=== PATIENT | female | born 1990 | race Two or more races ===

== ENCOUNTER 2018-07-02 12:45 | Inpatient (IN) | payer OTHER ==
[~2018-07-02] VITALS: Ht 162.6 cm; Wt 103.4 kg
[2018-07-08] MEDS ORDERED: PRENATAL FORMU1 EAC1 PO (06:39)
== END 2018-07-10 12:43 | disposition home or self-care (01) | DRG 807 ==
LOC: OB/GYN 07-08 05:22 → LDR 07-08 05:22 → OB/GYN 07-08 16:04
PROVIDERS: ADMIT Obstetrics & Gynecology
PROC: 10E0XZZ Delivery of Products of Conception, External Approach (ICD-10-PCS; principal; 2018-07-08)
PROC: 4A1HXCZ Monitoring of Products of Conception, Cardiac Rate, External Approach (ICD-10-PCS; 2018-07-08)
PROC: 0KQM0ZZ Repair Perineum Muscle, Open Approach (ICD-10-PCS; 2018-07-08)
DX: O70.1 Second degree perineal laceration during delivery (principal); Z37.0 Single live birth; Z3A.38 38 weeks gestation of pregnancy

== ENCOUNTER → 2019-10-25 | Day surgery (SDC) | payer OTHER ==
[~2019-10-25] MED LIST: PERCOCET 5-3251 EACH PO; PRENATAL FORMU1 EAC1 PO; RECTICARE30 GM TOP; VITAMIN C500 M6 PO
== END | disposition home or self-care (01) ==
LOC: ADM 10-24 12:45 → AMB-ENDOS 06:15
PROVIDERS: ATTEND Surgery
DX: K62.89 Other specified diseases of anus and rectum (principal); N82.3 Fistula of vagina to large intestine

== ENCOUNTER 2019-11-21 05:42 | Day surgery (SDC) | payer OTHER ==
[~2019-11-21 05:42] MED LIST changes: -PERCOCET 5-3251 EACH PO; -RECTICARE30 GM TOP
[2019-11-21] MEDS ORDERED: PERCOCET 5-3251 EACH PO (10:15)
[2019-11-21] MEDS ORDERED: RECTICARE30 GM TOP (10:16)
== END 2019-11-21 14:27 | disposition home or self-care (01) ==
LOC: CIR.AMB 05:42
PROVIDERS: ATTEND Surgery
DX: N82.3 Fistula of vagina to large intestine (principal)

== ENCOUNTER 2025-05-11 05:18 | Inpatient (IN) | payer OTHER ==
[2025-05-04 07:30] LABS: URINE APPEARANCE Cloudy; URINE BILIRRUBIN Negative (NEGATIVE); URINE BLOOD Trace; URINE COLOR Yellow; URINE GLUCOSE Negative (NEGATIVE); URINE KETONE Negative (NEGATIVE); URINE LEUKOCYTE Negative; URINE NITRATE Negative; URINE PROTEIN Negative (NEGATIVE); URINE UROBILINOGEN 0.2 E.U./dl
[2025-05-04 07:34] LABS: URINE BACTERIA 1111.8 uL (0.0-1933); URINE EPITHELIAL CELLS 32.0 uL (0.0-38.8); URINE RBC 8.6 uL (0.0-20.8); URINE WBC 3.5 uL (0.0-23.2)
[2025-05-04 07:43] LABS: URINE CAST 0.14 uL (0.0-1.40)
[2025-05-04 07:46] LABS: BASO % 0.4 % (0.1-1.2); EOS # 0.61 (0.04-0.54); EOS % 8.7 % (0.7-7.0); LYMPH # 2.20 (1.18-3.74); LYMPH % 31.3 % (19.3-53.1); MEAN PLATELET VOLUME 10.50 fl (9.4-12.4); MONO # 0.38 (0.24-0.82); MONO % 5.4 % (4.7-12.5); NEUT # 3.80 (1.56-6.13); NEUT % 53.9 % (34.0-71.1); RED CELL DISTRIBUTION WIDTH 12.6 % (11.6-14.4)
[2025-05-04 08:09] LABS: INR 0.98
[2025-05-04 08:36] LABS: ALT/SGPT 19.0 U/L (12-78); AST/SGOT 11.0 U/L (15-37); BILIRUBIN TOTAL 0.62 mg/dL (0.3-1.2); BUN CREA RATIO 21.0 (7.0-25.0); CREATININE SERUM 0.73 mg/dL (0.55-1.02); GFR 90.72; GLOBULINA 3.7 G/DL (2.4-3.5); GLUCOSE FASTING 98.0 mg/dL (65-100); OSMOLALITY SERUM 282.0 MOSM/KG (275-295); TSH 1.66 uIU/mL (0.358-3.74)
[~2025-05-11 05:18] MED LIST changes: +PERCOCET 5-3251 EACH PO; +RECTICARE30 GM TOP
[2025-05-11] MEDS ORDERED: CEFOXITIN SODIUM 2,000 MG VIAL IV ONE (06:25)
[2025-05-11] MEDS ORDERED: POVIDONE-IODINE 118 ML BOTT TOP ONE (07:00)
[2025-05-11] MEDS ORDERED: SUGAMMADEX SODIUM 200 MG/2 ML VIAL IV ONE (09:34)
[2025-05-11] MEDS ORDERED: CHLORHEXIDINE GLUCONATE 120 ML BOTTLE TOP ONE (09:38)
[2025-05-11] MEDS ORDERED: RINGERS SOLUTION,LACTATED 1,000 ML IV SCH (10:00)
[2025-05-11] MEDS ORDERED: MORPHINE SULFATE 4 MG/ML CARTRIDGE IV SCH (10:02)
[2025-05-11] MEDS ORDERED: ACETAMINOPHEN WITH CODEINE 1 UDTAB TABLET PO PRN (10:15)
[2025-05-11] MEDS ORDERED: PROMETHAZINE HCL 50 MG/ML AMPUL IM ONE (10:53)
[2025-05-11] MEDS ORDERED: PROMETHAZINE HCL 50 MG/ML AMPUL IV SCH (12:00)
[2025-05-11 12:27] LABS: BASO % 0.3 % (0.1-1.2); EOS # 0.01 (0.04-0.54); EOS % 0.1 % (0.7-7.0); LYMPH # 1.03 (1.18-3.74); LYMPH % 7.1 % (19.3-53.1); MEAN PLATELET VOLUME 10.40 fl (9.4-12.4); MONO # 0.43 (0.24-0.82); MONO % 3.0 % (4.7-12.5); NEUT # 12.85 (1.56-6.13); NEUT % 89.1 % (34.0-71.1); RED CELL DISTRIBUTION WIDTH 12.5 % (11.6-14.4)
[2025-05-11 13:34] VITALS: BP 109/71
[2025-05-11 17:09] VITALS: BP 106/71
[2025-05-12 01:26] VITALS: BP 114/78
[2025-05-12] MEDS ORDERED: NAPR500T14 PO (07:52)
[2025-05-12] MEDS ORDERED: Tylenol #3 PO (07:52)
[2025-05-12 08:00] VITALS: BP 110/82
== END 2025-05-12 13:44 | disposition home or self-care (01) | DRG 741 ==
LOC: CIR.AMB 05:18 → OB/GYN 13:30
PROVIDERS: ADMIT Obstetrics & Gynecology; ATTEND Obstetrics & Gynecology
PROC: 0UT77ZZ Resection of Bilateral Fallopian Tubes, Via Natural or Artificial Opening (ICD-10-PCS; 2025-05-11)
PROC: 0JQC0ZZ Repair Pelvic Region Subcutaneous Tissue and Fascia, Open Approach (ICD-10-PCS; 2025-05-11)
PROC: 0USG0ZZ Reposition Vagina, Open Approach (ICD-10-PCS; 2025-05-11)
PROC: 0TJB8ZZ Inspection of Bladder, Via Natural or Artificial Opening Endoscopic (ICD-10-PCS; 2025-05-11)
PROC: 0UT97ZZ Resection of Uterus, Via Natural or Artificial Opening (ICD-10-PCS; principal; 2025-05-11 07:00)
DX: D06.1 Carcinoma in situ of exocervix (principal); N81.11 Cystocele, midline